=== PATIENT | male | born 1955 | race Caucasian/White ===

== ENCOUNTER 2017-06-24 23:06 | Emergency (ER) | payer SELFPAY ==
[~2017-06-24] VITALS: Ht 177.8 cm; Wt 68.9 kg
[2017-06-24 23:21] VITALS: Ht 177.8 cm; Wt 68.9 kg
[2017-06-24] MEDS ORDERED: LIDOCAINE 2% (MDV) 20 ML INJ INJ STA (23:52)
[2017-06-25] MEDS ORDERED: DIPHTH/TET/ACEL PERTUSS (ADULT) 0.5 ML VIAL IM* ONE
--- NOTE | 2017-06-25 00:09 | ERD ---
ER Documentation Chief Complaint Chief Complaint c/o complex left hand laceration since 1700. HPI Patient is a [id number] 61-year-old male who presents with lacerations to his left thumb second and third digits that he sustained today with a hand meat salter in the kitchen. He is unsure of his last tetanus vaccination. Pain is moderate throbbing in nature in the fingers. No numbness or tingling. No loss of range of motion. Denies possibility retained foreign body. ROS All systems reviewed and are negative except as per history of present illness. Medications Home Meds Active Scripts Ibuprofen* (Motrin*) 800 Mg Tab, 800 MG PO Q6, #30 TAB Prov:DL BOJORQUEZ PA-C 06/25/17 Cephalexin* (Keflex*) 500 Mg Capsule, 500 MG PO QID for 7 Days, CAP Prov:DL BOJORQUEZ PA-C 06/25/17 Allergies Allergies: Coded Allergies: No Known Drug Allergies (Verified Allergy, Unknown, 06/24/17) PMhx/Soc Medical and Surgical Hx: pt denies Medical Hx, pt denies Surgical Hx Hx Alcohol Use: No Hx Substance Use: No Hx Tobacco Use: No Smoking Status: Never smoker FmHx Family History: No diabetes Physical Exam Vitals Vital Signs Date Time Temp Pulse Resp B/P Pulse Ox O2 Delivery O2 Flow Rate FiO2 06/24/17 23:21 98.0 68 18 159/80 99 Physical Exam Const: [] Head: Atraumatic Eyes: Normal Conjunctiva ENT: Normal External Ears, Nose and Mouth. Neck: Full range of motion..~ No meningismus. Resp: Clear to auscultation bilaterally Cardio: Regular rate and rhythm, no murmurs Skin: Left thumb second and third finger have distal partial avulsions of the tip, worse on the thumb, full range of motion in the hand in all fingers, sensation to light touch is intact, no bony abnormalities Results 24 hrs Current Medications Medications (Trade) Dose Ordered Sig/Abe Route PRN Reason Start Time Stop Time Status Last Admin Dose Admin Lidocaine (Xylocaine 2% (Mdv) 20 ml) 20 ml ONCE STAT INJ 06/24/17 23:52 06/24/17 23:53 DC Diphtheria/ Tetanus/Acell Pertussis (Adacel) 0.5 ml ONCE ONCE IM* 06/25/17 00:00 06/25/17 00:01 DC 06/25/17 00:04 Acetaminophen/ Hydrocodone Bitart ([place] (5/325)) 1 tab ONCE ONCE PO 06/25/17 00:30 06/25/17 00:31 DC Procedures/MDM Patient presents with partial fingertip skin avulsions secondary to hand meat salter. He is neurovascular intact. He is not on any blood thinning medications. He was given a tetanus vaccination. His wounds were appropriately dressed and bandaged. 1 of the avulsions on the fingers is also very small center laceration that I will place 1 suture in with absorbable 5-0 sutures after it is prepped with Betadine and anesthetized with a digital block of 1% lidocaine. These were all appropriately dressed and bandaged and Surgicel was applied to get the bleeding to be controlled. He was given a prescription for Keflex and I recommended 2 day wound check. Given prescriptions for Motrin. X-ray of the hand was negative for fracture dislocation. Patient counseled regarding my diagnostic impression and care plan. Prior to discharge all questions answered. Pt agrees with treatment plan and understands strict return precautions. Pt is instructed to follow up with primary care provider within 24-48 hours. Precautionary instructions provided including instructions to return to the ER if not improving or for any worsening or changing symptoms or concerns. Departure Diagnosis: Primary Impression: Fingertip avulsion Condition: Stable DL BOJORQUEZ PA-C Jun 25, 2017 00:09
[2017-06-25] MEDS ORDERED: HYDROCODONE/APAP (5/325) TAB PO ONE (00:30)
--- NOTE | 2017-06-25 01:10 | RADRPT ---
PROCEDURE: XR Hand. CLINICAL INDICATION: 61 years of age, male. Lacerations. TECHNIQUE: Three views of the left hand. COMPARISON: None available. FINDINGS: There is soft tissue injury involving the thumb with irregularity of the soft tissues, swelling and soft tissue gas. In addition, there is a bandage over the proximal second finger. There are lacerati ons involving the soft tissues at the tips of the second and third fingers. Negative for evidence of a radiopaque foreign body. Negative for acute fracture. Normal alignment. Joint spaces are maintained without evidence of significant arthritis. Additional comment: None. IMPRESSION: 1. Negative for evidence of acute fracture or dislocation of the left hand. 2. Soft tissue injury involving the thumb and the second and third fingers. Negative for evidence of radiopaque foreign body. RPTAT: HCTS Physician Georgina Date Time Electronically viewed and signed by Physician Georgina on 06/25/2017 01:10 /
[2017-06-25] MEDS ORDERED: IBUP800T25 PO (01:13)
[2017-06-25] MEDS ORDERED: CEPH-443 PO (01:13)
[2017-06-25 01:38] VITALS: PULSE 87; RESP 20; TEMP 98.2
== END 2017-06-25 01:25 | disposition home or self-care (01) ==
LOC: FTE 23:06
DX: S61.012A Laceration without foreign body of left thumb without damage to nail, initial encounter (principal); S61.211A Laceration without foreign body of left index finger without damage to nail, initial encounter; S61.213A Laceration without foreign body of left middle finger without damage to nail, initial encounter; W26.8XXA Contact with other sharp object(s), not elsewhere classified, initial encounter; Y92.9 Unspecified place or not applicable; Z23 Encounter for immunization
CPT/HCPCS: 90471; 90715